=== PATIENT | male | born 1965 | race Caucasian/White ===

== ENCOUNTER → 2023-03-22 09:18 | Outpatient (BNVA) | payer MEDICAID, SELFPAY | PROVIDERS: Visit Provider Family Medicine | DX: K70.30 Alcoholic cirrhosis of liver without ascites (principal) | CPT/HCPCS: 80053; 80061; 83036; 84439; 84443; 85025 ==

== ENCOUNTER → 2023-04-08 10:04 | Outpatient (BNVA) | payer MEDICAID, SELFPAY | PROVIDERS: Visit Provider Internal Medicine | DX: Z01.818 Encounter for other preprocedural examination (principal) | CPT/HCPCS: 85049; 85384; 85610; 85730; 86850; 86900; 93005 ==

== ENCOUNTER 2023-05-25 07:37 | Day surgery (SDC) | payer MEDICAID, SELFPAY ==
[2023-05-24 09:40] VITALS: BMI 25.4
--- NOTE | 2023-05-24 10:44 | P.ANESASSM_ITS ---
Pre-Anesthetic Assessment Height/Weight: Height 1.68 m Weight 71.668 kg Operation Date: 05/25/23 09:40 Proposed Procedures p 58106 X2 52540 X2 LAP POSS OPEN BILATERAL INGUINAL HERNIA REPAIR WITH MESH K40.20(Bilateral) - Jack Colindres MD Was Beta Kimani taken within 24 hours: N/A Was Clonidine taken within 24 hours: N/A Social No alcohol and No tobacco Quit alcohol & tobacco years ago Exam alert, oriented x 3, clear to auscultation bilaterally and regular rate & rhythm Airway Submandibular: within normal limits Cervical ROM: within normal limits Mallampati: Class II Dentition: loose Comments: Comments: Multiple Missing teeth. Upper molar loose. History/ROS No significant history except as noted and No significant complaints Pulmonary Chronic Obstructive Pulmonary Disease Hepatic Cirrhosis Anesthetic Plan ASA status: 3 Anesthesia: General Risk of > 500 ml blood loss (7ml/kg in children): No Medications/Allergies Home Medications Medication Instructions Recorded Confirmed Last Taken Type No Known Home Medications 05/24/23 05/24/23 Unknown History Allergies Allergy/AdvReac Type Severity Reaction Status Date / Time No Known Allergies Allergy Unverified 05/24/23 09:35 [facility] Anesthesia Medical History (Updated 04/08/23 @ 10:32 by Jack Colindres MD) Alcoholic cirrhosis Arthritis Neuropathy Surgical History (Updated 04/08/23 @ 08:59 by Yuly Butt) History of tonsillectomy Social History (Updated 03/22/23 @ 08:29 by Moni Ely LPN) Smoking and tobacco status: former smoker Quit status (tobacco): has quit using tobacco Second hand smoke exposure: No Smoking risk assessment/counseling performed?: No Alcohol intake: former Desire information about alcohol rehabilitation?: No Counseling given: No Substance/Drug Use: current Substance/Drug use frequency: daily Desire information about substance/drug rehabilitation?: No Counseling given: No Data Anesthesia Cardiac Studies: No Data to Display
[2023-05-25] VITALS (12 sets, daily range): BP systolic 106–158; BP diastolic 50–86; PULSE 55–72; RESP 14–26; TEMP 36.1–36.8; O2SAT 93–99
--- NOTE | 2023-05-25 06:26 | W.PM.OPSFHP ---
Same Day Surgery H&P Indication for Procedure/HPI DATE OF PROCEDURE: May 25, 2023 CHIEF COMPLAINT/INDICATIONFOR SURGICAL PROCEDURE: right groin pain PREOP DIAGNOSIS: bilateral inguinal hernia PLANNED PROCEDURE: Operation Date: 05/25/23 09:40 Proposed Procedures p 22342 X2 85816 X2 LAP POSS OPEN BILATERAL INGUINAL HERNIA REPAIR WITH MESH K40.20(Bilateral) - Jack Colindres MD Medications/Allergies* Home Medications Medication Instructions Recorded Confirmed Type No Known Home Medications 05/24/23 05/24/23 History Allergies/Adverse Reactions Allergy/AdvReac Type Severity Reaction Status Date / Time No Known Allergies Allergy Unverified 05/24/23 09:35 Pertinent History/Comorbid Conditions* Medical History (Updated 04/08/23 @ 10:32 by Jack Colindres MD) Alcoholic cirrhosis Arthritis Neuropathy Surgical History (Updated 03/22/23 @ 08:34 by Reddy Burroughs MD) History of tonsillectomy Social History Smoking and tobacco status: former smoker Quit status (tobacco): has quit using tobacco Second hand smoke exposure: No Smoking risk assessment/counseling performed?: No Alcohol intake: former Desire information about alcohol rehabilitation?: No Counseling given: No Substance/Drug Use: current Substance/Drug use frequency: daily Desire information about substance/drug rehabilitation?: No Counseling given: No Pertinent Exam Findings alert, oriented x 3, clear to auscultation bilaterally and regular rate & rhythm Recommendations Surgery/Procedure today Coding Level of Care Code Acute Code for Chg Fwd Diagnoses
[2023-05-25] MEDS: sodium chloride 0.9% 1,000 ML 30 ML IV (08:15)
--- NOTE | 2023-05-25 08:26 | P.ANESUD_ITS ---
Pre-Anesthetic Update Pre-Anesthetic Assessment: Date of Surgery/Procedure: 05/25/23 Preop Herminia gnosis: bilateral inguinal hernia Proposed Procedure: Operation Date: 05/25/23 09:40 Proposed Procedures p 27321 X2 94028 X2 LAP POSS OPEN BILATERAL INGUINAL HERNIA REPAIR WITH MESH K40.20(Bilateral) - Jack Colindres MD Any changes to Pre-Anesthetic Assessment?: No Last Intake: Intake Last Liquid Date 05/24/23 Last Liquid Time 21:00 Last Solid Date 05/24/23 Last Solid Time 21:00 Vitals: Temperature 98.3 F 05/25/23 07:58 Temperature Source Temporal Artery S can 05/25/23 07:58 Pulse Rate 72 05/25/23 07:58 Respiratory Rate 18 05/25/23 07:58 Blood Pressure 158/86 05/25/23 07:58 Blood Pressure Mallika n 110 05/25/23 07:58 Pulse Oximetry 99 05/25/23 07:58 Oxygen Delivery Me thod Room Air 05/25/23 07:58 Exam: Pre-Anes Outpt Exam: alert, oriented x 3, clear to auscultation bilater ally and regular rate & rhythm Cardiac Studies: No Data to Display
[2023-05-25] MEDS: ceFAZolin 2,000 MG in sodium chloride 0.9% (plus) 50 ML 100 MG IV (08:32)
[2023-05-25] MEDS: BUPivacaine 0.25% INJ 10 mL INJECTION (09:00)
[2023-05-25] MEDS: lidocaine-epi 1% 20 mL INJ 10 ML INJECTION (10:09)
--- NOTE | 2023-05-25 10:28 | P.OP_ITS ---
Operative Report Date of procedure: May 25, 2023 Pre-op diagnosis: Bilateral inguinal hernias Procedure done: Laparoscopic bilateral inguinal hernia repair with mesh Implants: Extra-large right 3D max mesh, large left 3D max mesh Surgeon: Jack Colindres MD Application Security Architect: [facility] [place] [facility]. 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 Small left indirect inguinal hernia, large lipoma of the cord on the left. Brief History: This is a 59-year-old male who presented to my clinic complaining of bilateral inguinal hernias. Laparoscopic repair was recommended after a discussion regarding risk and benefits. He presents today for the procedure. Procedure: The patient was brought into the OR. Was placed in the supine position, general anesthesia was given. Hernandez catheter was placed. The abdomen was prepped and draped in the usual sterile fashion. Timeout was conducted. At 1.5 cm infraumbilical incision was made, the anterior rectus sheath was identified and incised, the rectus muscle was retracted laterally access in the retrorectus space. Balloon insufflator Spacemaker was then inserted into the space and carefully advanced to the region overlying the pubic bone. The balloon was inflated under direct visualization showing complete expansion of the preperitoneal space. The balloon was removed and switch for a 10 mm trocar with balloon. Additional 5 mm trocars were placed in the suprapubic and infraumbilical region. We started our dissection on the right side. The right space of [facility] was developed with blunt dissection. Critical structures were identified, at this point it was evident that the patient had a large indirect inguinal hernia. The vas deferens and cord vessels were from the hernia sac out in a blunt fashion. The hernia sac was then reduced from the internal inguinal ring. Once the hernia sac was reduced it was pushed down about 4 cm from the internal ring in order to prevent recurrence. A large lipoma of the cord was also encountered and reduced. An extra large right 3D max mesh was then inserted and tacked to the pubic bone medially, careful consideration was taken to cover the direct and indirect spaces, the peritoneal reflection was noted to be below the level of the inferior edge of the mesh. We then placed our attention to the left side. The left space of Borss was develo ped with blunt dissection. Critical structures were identified, at this point it was evident that the patient had a small indirect inguinal hernia. The vas deferens and cord vessels were from the hernia sac out in a blunt fashion. The hernia sac was then reduced from the internal inguinal ring. Once the hernia sac was reduced it was pushed down about 4 cm from the internal ring in order to prevent recurrence. A large lipoma of the cord was also encountered and reduced. An large left 3D max mesh was then inserted and tacked to the pubic bone medially, careful consideration was taken to cover the direct and indirect spaces, the peritoneal reflection was noted to be below the level of the inferior edge of the mesh. Once both meshes were placed, they will cover the complete preperitoneal space up to the midline. The Fluid Suplasyn Was Then Removed and I Saw the Mesh Lay Flat against the Peritoneum without Any Complications. Trocars Were Removed. The rectus Fascia was then closed with 0 Vicryl. Wounds were closed in layers using #3-0 Vicryl for the subcutaneous tissue and #4 Monocryl for the skin. Dermabond was applied. At the end of the procedure all counts were correct, the patient tolerated well the procedure was extubated and transferred with the PACU in stable condition.
[2023-05-25] MEDS: oxyCODONE 5 mg IR Tab/Cap PO (12:08)
--- NOTE | 2023-05-25 16:42 | ANE.PACU2 ---
Inpatient post-anesthesia follow up: Airway intact: Yes Vital signs: Temperature 97.1 F Pulse Rate 59 Respiratory Rate 16 Blood Pressure 108/58 Pulse Oximetry 95 Oxygen Delivery Me thod Room Air Oxygen Flow Rate 6 Fraction of Inspir ed Oxygen Hydration adequate: Yes Nausea and vomiting: No Pain level: 3 Mental status: Baseline
== END 2023-05-25 12:40 | disposition home or self-care (01) ==
PROVIDERS: Visit Provider Surgery
PROC: (CPT 49650; principal; 2023-05-25 09:30)
DX: K40.20 Bilateral inguinal hernia, without obstruction or gangrene, not specified as recurrent (principal); D17.6 Benign lipomatous neoplasm of spermatic cord; J44.9 Chronic obstructive pulmonary disease, unspecified; Z87.891 Personal history of nicotine dependence
CPT/HCPCS: 49650; 51702; C1781; J0690; J1100; J1170; J2250; J2405; J2704; J3010; J3490; J7030

== ENCOUNTER → 2024-05-31 11:57 | Outpatient (BNVA) | payer MEDICAID, SELFPAY | PROVIDERS: PCP Family Medicine; Visit Provider Family Medicine | DX: K70.30 Alcoholic cirrhosis of liver without ascites (principal) | CPT/HCPCS: 80053; 80061; 82306; 82977; 83036; 85025 ==